=== PATIENT | male | born 1960 | race Caucasian/White ===

== ENCOUNTER 2022-11-22 09:04 | Day surgery (SDC) | payer OTHER, BC ==
[2022-11-08 13:25] VITALS: BMI 29.2
[2022-11-22] MEDS ORDERED: MIDAZOLAM HCL 2 MG/2 ML SINGLE DOSE VIAL ONE (12:09)
[2022-11-22] MEDS ORDERED: ROCURONIUM BROMIDE 50 MG/5 ML SYRINGE ONE ×2 (12:18)
[2022-11-22] MEDS ORDERED: ONDANSETRON 4 MG/2 ML VIAL ONE (12:19)
[2022-11-22] MEDS ORDERED: ceFAZolin SODIUM 1 GM VIAL ONE (12:19)
[2022-11-22] MEDS ORDERED: LIDOCAINE HCL/PF 2% SDV 5ML VIAL ONE (12:19)
[2022-11-22] MEDS ORDERED: KETOROLAC TROMETHAMINE 30 MG/1 ML VIAL ONE (12:19)
[2022-11-22] MEDS ORDERED: DEXAMETHASONE SOD PHOSPHATE 4 MG/1 ML VIAL ONE (12:19)
[2022-11-22] MEDS ORDERED: BUPIVACAINE HCL/PF 2.5 MG/ML - 30 ML VIAL IJ ONE (12:24)
[2022-11-22] MEDS ORDERED: NEOSTIGMINE METHYLSULFATE 0.5 MG/1 ML - 10 ML MDV ONE (13:02)
[2022-11-22] MEDS ORDERED: ONDANSETRON 4 MG/2 ML VIAL IVPUSH PRN (13:40)
[2022-11-22] MEDS ORDERED: oxyCODONE HCL 5 MG TABLET PO PRN (13:40)
[2022-11-22] MEDS ORDERED: LACTATED RINGERS SOLUTION 1,000 ML IV SCH (13:45)
[2022-11-22 14:58] VITALS: RESP 16; TEMP 96.7
[2022-11-22 15:25] VITALS: BP 101/71; PULSE 50
== END 2022-11-22 16:12 | disposition home or self-care (01) ==
LOC: FASU 09:04
PROVIDERS: ATTEND Orthopaedic Surgery
PROC: 0JBF0ZX Excision of Left Upper Arm Subcutaneous Tissue and Fascia, Open Approach, Diagnostic (ICD-10-PCS; 2022-11-22)
PROC: 0PBB4ZZ Excision of Left Clavicle, Percutaneous Endoscopic Approach (ICD-10-PCS; principal; 2022-11-22 12:38)
DX: M19.012 Primary osteoarthritis, left shoulder (principal); D17.22 Benign lipomatous neoplasm of skin and subcutaneous tissue of left arm; Z72.0 Tobacco use
CPT/HCPCS: 88304-TC; 88305-TC; 88311-TC; 94760

== ENCOUNTER 2023-06-27 06:20 | Day surgery (SDC) | payer OTHER, BC ==
[2023-06-27] MEDS ORDERED: ACETAMINOPHEN 325 MG TABLET (FP) PO PRN (07:02)
[2023-06-27] MEDS ORDERED: ONDANSETRON 4 MG/2 ML VIAL IVPUSH PRN (07:02)
[2023-06-27] MEDS ORDERED: oxyCODONE HCL 5 MG TABLET PO PRN (07:02)
[2023-06-27] MEDS ORDERED: EPINEPHrine 1:1,000 1,000 MCG/ML ML ONE (07:06)
[2023-06-27] MEDS ORDERED: DEXAMETHASONE SOD PHOSPHATE/PF 10 MG/ML SDV ONE (07:09)
[2023-06-27] MEDS ORDERED: MIDAZOLAM HCL 2 MG/2 ML SINGLE DOSE VIAL ONE (07:09)
[2023-06-27] MEDS ORDERED: ACETAMINOPHEN INJECTION 100 ML IVPB ONE (07:09)
[2023-06-27] MEDS ORDERED: BUPIVACAINE HCL/PF 0.5% (5MG/ML) 10 ML VIAL ONE ×3 (07:09→08:09)
[2023-06-27] MEDS ORDERED: LACTATED RINGERS SOLUTION 1,000 ML IV SCH (07:15)
[2023-06-27] MEDS ORDERED: SUCCINYLCHOLINE CHLORIDE 200 MG/10 ML SYRINGE ONE (07:48)
[2023-06-27] MEDS ORDERED: PROPOFOL 20 ML ONE (07:48)
[2023-06-27] MEDS ORDERED: BUPIVACAINE HCL/PF 2.5 MG/ML - 30 ML VIAL IJ ONE (08:06)
[2023-06-27] MEDS ORDERED: ceFAZolin SODIUM 1 GM VIAL ONE ×2 (08:48)
[2023-06-27 10:57] VITALS: TEMP 96.7
[2023-06-27 11:28] VITALS: BP 103/63; PULSE 61; RESP 17
== END 2023-06-27 11:45 | disposition home or self-care (01) ==
LOC: FASU 06:20
PROVIDERS: ATTEND Orthopaedic Surgery
PROC: 0LS44ZZ Reposition Left Upper Arm Tendon, Percutaneous Endoscopic Approach (ICD-10-PCS; 2023-06-27)
PROC: 0RHK44Z Insertion of Internal Fixation Device into Left Shoulder Joint, Percutaneous Endoscopic Approach (ICD-10-PCS; 2023-06-27)
PROC: 0RNK4ZZ Release Left Shoulder Joint, Percutaneous Endoscopic Approach (ICD-10-PCS; 2023-06-27)
PROC: 0LM24ZZ Reattachment of Left Shoulder Tendon, Percutaneous Endoscopic Approach (ICD-10-PCS; principal; 2023-06-27 08:56)
DX: M75.122 Complete rotator cuff tear or rupture of left shoulder, not specified as traumatic (principal); M75.02 Adhesive capsulitis of left shoulder; M75.42 Impingement syndrome of left shoulder; S43.432A Superior glenoid labrum lesion of left shoulder, initial encounter; S46.112A Strain of muscle, fascia and tendon of long head of biceps, left arm, initial encounter; X58.XXXA Exposure to other specified factors, initial encounter; Y93.9 Activity, unspecified; Y92.9 Unspecified place or not applicable
CPT/HCPCS: 29823; 29825; 29826; 29827; 29828; C1713; 94760